=== PATIENT | female | born 1995 | race Caucasian/White ===

== ENCOUNTER 2016-06-04 03:15 | Emergency (ER) | payer BC ==
[2016-06-04] MEDS ORDERED: Ondansetron INJ* 2 MG/ML VIAL IV ONE (03:33)
[2016-06-04] MEDS ORDERED: NS 0.9% 1000 ML* 1,000 ML IV ONE (03:33)
[2016-06-04] MEDS ORDERED: Morphine INJ* 4 MG/ML 1 ML CARPUJECT IV ONE (03:33)
--- NOTE | 2016-06-04 04:03 | ED ---
Charan Pichardo Anna, scribed for Ambrosio Packer MD on 06/04/16 at 0327 . Abdominal Pain/Female - HPI Summary HPI Summary: Patient is a 20 y/o female coming to [facility] presenting with sudden onset of constant, worsening central abdominal pain that began one hour ago. The pain woke her from her sleep. She describes the severity of the pain as 8/10. It is not worsened by deep breaths. She denies nausea, dysuria, emesis, changes in BM. - History of Current Complaint Stated Complaint: SEVER ABD PAIN Hx Obtained From: Patient Onset/Duration: Sudden Onset, Lasting Hours, Still Present Timing: Constant Severity Initially: Moderate Severity Currently: Moderate Pain Intensity: 8 Pain Scale Used: 0-10 Numeric Allergies/Adverse Reactions: Allergies Allergy/AdvReac Type Severity Reaction Status Date / Time No Known Allergies Allergy Verified 06/04/16 03:23 Home Medications: Home Medications Doxepin (NF) [Silenor (NF)] 10 mg PO DAILY 06/04/16 [History Confirmed 06/04/16] Sertraline* [Zoloft*] 100 mg PO DAILY 06/04/16 [History Confirmed 06/04/16] PMH/Surg Hx/FS Hx/Imm Hx Previously Healthy: Yes Respiratory History: Reports: Hx Asthma Psychiatric History: Reports: Hx Anxiety, Hx Depression - Family History Known Family History: Positive: Other - Hx HLD in mother - Social History Lives: With Family Alcohol Use: Occasionally - 1x/week Substance Use Type: Reports: Marijuana - 1x/week Smoking Status (MU): Never Smoked Tobacco Review of Systems Positive: Abdominal Pain. Negative: Vomiting, Nausea Negative: dysuria All Other Systems Reviewed And Are Negative: Yes Physical Exam Triage Information Reviewed: Yes Vital Signs On Initial Exam: Initial Vitals Temp Pulse Resp BP Pulse Ox 98.7 F 79 12 130/75 98 06/04/16 03:22 06/04/16 03:22 06/04/16 03:22 06/04/16 03:22 06/04/16 03:22 Vital Signs Reviewed: Yes Appearance: Positive: Pain Distress - mild discomfrot, Thin Skin: Positive: Warm Head/Face: Positive: Normal Head/Face Inspection Eyes: Positive: ANDRIY ENT: Positive: Hearing grossly normal Neck: Positive: Supple Respiratory/Lung Sounds: Positive: Clear to Auscultation, Breath Sounds Present Cardiovascular: Positive: RRR Abdomen Description: Positive: No Organomegaly, Soft, Other: - mild diffuse abd tenderness Bowel Sounds: Positive: Present Musculoskeletal: Positive: Strength/ROM Intact Neurological: Positive: Sensory/Motor Intact, Alert, Oriented to Person Place, Time, Normal Gait Psychiatric: Positive: Affect/Mood Appropriate Diagnostics - Vital Signs Vital Signs Temp Pulse Resp BP Pulse Ox 06/04/16 03:58 14 06/04/16 03:22 98.7 F 79 12 130/75 98 - Laboratory Result Diagrams: 06/04/16 03:40 06/04/16 03:40 Lab Statement: Any lab studies that have been ordered have been reviewed, and results considered in the medical decision making process. - CT abd/pel CT w/contrast CT Interpretation: No Acute Changes CT Interpretation Completed By: Radiologist Re-Evaluation - Re-Evaluation First Eval Re-Evaluation Time: 06:00 Comment: Patient expresses she is still feeling abdominal pain. Wii do pelvic u/ s Second Eval Change: Improved Abdominal Pain Fem Course/Dx - Course Course Of Treatment: Goyo Lawson Patient is a 20 y/o female coming to [facility] presenting with sudden onset of constant, worsening central abdominal pain that began one hour ago. The pain woke her from her sleep. She describes the severity of the pain as 8/10. It is not worsened by deep breaths. She denies nausea, dysuria, emesis, changes in BM. Patient was given Zofran and Morphine in the ED. Labs and UA WNL. No acute findings on CT abd/pel with contrast. Upon re-evaluation, patient was still in pain and was given Ativan and Toradol. - Diagnoses Provider Diagnoses: Abdominal pain Discharge - Discharge Plan Condition: Stable Disposition: HOME Patient Education Materials: Acute Abdominal Pain (ED) [facility] [Primary Care Provider] - Additional Instructions: FOLLOW UP WITH [facility]. CONSIDER STARTING ANTACID MEDICATIONS IF HELPFUL. RETURN TO THE EMERGENCY DEPARTMENT FOR ANY WORSENING OF YOUR CONDITION; PAIN, FEVER, VOMITING, YOU FEEL ILL OR QUESTIONS OR CONCERNS. The documentation as recorded by the Charan huang Anna accurately reflects the service I personally performed and the decisions made by me, Ambrosio Packer MD.
[2016-06-04 04:39] LABS: ALT 10 U/L (7-52); AST 16 U/L (13-39); Alkaline Phosphatase 73 U/L (34-104); Anion Gap 3 mmol/L (2-11); BUN/Creatinine Ratio 17.7 (8-20); Blood Urea Nitrogen 11 mg/dL (6-24); C Reactive Protein < 1.00 mg/L (< 5.00); CO2 Carbon Dioxide 25 mmol/L (22-32); Calcium 9.2 mg/dL (8.6-10.3); Chloride 105 mmol/L (101-111); EGFR African American 157.8 (>60); EGFR Non-African American 122.7 (>60); Globulin 2.6 g/dL (2-4); Glucose 94 mg/dL (70-100); Lipase 17 U/L (11.0-82.0); Potassium 4.1 mmol/L (3.5-5.0); Sodium 133 mmol/L (133-145); Total Protein 6.6 g/dL (6.4-8.9)
[2016-06-04 04:40] LABS: Urine Bilirubin Negative (Negative); Urine Glucose Negative (Negative); Urine Nitrite Negative (Negative)
[2016-06-04 04:42] LABS: Hematocrit 39 % (35-47); Hemoglobin 12.8 g/dl (12.0-16.0); Mean Corpuscular HGB Conc 33 g/dl (31-36); Mean Corpuscular Hemoglobin 29 pg (27-31); Mean Corpuscular Volume 88 fL (80-97); Mean Platelet Volume 8 um3 (7.4-10.4); Red Blood Count 4.46 10^6/ul (4.0-5.4); Red Cell Distribution Width 15 % (10.5-15); White Blood Count 9.2 10^3/ul (3.5-10.8)
[2016-06-04 04:43] LABS: Add Diff/Slide Review? Slide Review Added
[2016-06-04] MEDS ORDERED: Iohexol 300* (CONTRAST) 10 ML SDV IV ONE (05:00)
[2016-06-04] MEDS ORDERED: Morphine INJ* 2 MG/ML 1 ML CARPUJECT IV ONE (05:09)
[2016-06-04] MEDS ORDERED: Ketorolac INJ* 30 MG/ML 1 ML VIAL IV PUSH ONE (06:02)
[2016-06-04] MEDS ORDERED: LORazepam INJ* 2 MG/ML 1 ML VIAL IV PUSH ONE (06:03)
[2016-06-04] MEDS ORDERED: LORazepam INJ* 2 MG/ML 1 ML VIAL ONE (06:04)
[2016-06-04] MEDS ORDERED: Ketorolac INJ* 30 MG/ML 1 ML VIAL ONE (06:04)
--- NOTE | 2016-06-04 08:31 | RAD ---
Indication: Lower abdominal pain. Comparison: June 04, 2016 CT. Technique: Transvaginal pelvic ultrasound. Report: Unremarkable 7.8 x 3.8 x 5.6 cm anteverted uterus with 12 mm endometrium. Negative for fluid within the endometrial cavity. Physiologic small volume of free fluid in the cul-de-sac. 4.8 x 2.8 x 2.3 cm RIGHT ovary with documented vascular flow is remarkable for a unilocular 2.0 x 2.0 x 1.7 cm cyst without complex features consistent with a follicular cyst without concern. 3.5 x 1.8 x 3.1 cm LEFT ovary with documented vascular flow is remarkable for multiple small follicles. No visualized extra ovarian adnexal region lesions. IMPRESSION: 2.0 cm follicular cyst of the RIGHT ovary without concern. Physiologic small volume of free fluid.
--- NOTE | 2016-06-04 08:58 | RAD ---
Indication: Abdominal pain. Contrast: Administered 69.0 ml of OMNIPAQUE 300 mgi/ml CT of the abdomen and pelvis was performed after oral and IV contrast administration. Coronal and sagittal reconstructed images were obtained. The lung bases demonstrate no pleural fluid, nodules or masses. Heart is of normal size without evidence of pericardial effusion. Liver is normal in size. No focal lesions or intrahepatic duct dilatation is noted. Common duct is not dilated. Gallbladder demonstrates no calcified gallstones, pericholecystic fluid or wall thickening. The pancreas demonstrates no mass or pancreatic ductal dilatation. Spleen is normal in size. No adrenal lesions are noted. The kidneys demonstrate symmetric nephrograms without focal lesions. No dilated loops of bowel are noted. No retroperitoneal adenopathy is noted. Aorta and inferior vena cava are unremarkable. There is stool throughout the colon. Moderate degree of free fluid is noted in the cul-de-sac. There is some air in a normal-appearing appendix in the right lower quadrant however the distal appendix is mildly distended with fluid. Clinical correlation is suggested. No hernias are noted. No evidence of bowel obstruction is noted. IMPRESSION: Small amount of free fluid is noted in the cul-de-sac. There is a normal caliber proximal appendix. The distal appendix appears to be filled with fluid. Clinical correlation is suggested. No hernias are noted. The uterus and ovaries are unremarkable.
--- NOTE | 2016-06-04 09:38 | ED ---
I, Bruce Sharma, scrsusana for Gurpreet Patricio MD on 06/04/16 at 0855 . Progress - Results/Orders Results/Orders: Transvaginal US: IMPRESSION: 2.0 cm follicular cyst of the RIGHT ovary without concern. Physiologic small volume of free fluid. Re-Evaluation - Re-Evaluation First Eval Re-Evaluation Time: 06:00 Comment: Patient expresses she is still feeling abdominal pain. Wii do pelvic u/ s Course/Dx - Course Course Of Treatment: Goyo Lawson Patient is a 20 y/o female coming to [facility] presenting with sudden onset of constant, worsening central abdominal pain that began one hour ago. The pain woke her from her sleep. She describes the severity of the pain as 8/10. It is not worsened by deep breaths. She denies nausea, dysuria, emesis, changes in BM. Patient was given Zofran and Morphine in the ED. Labs and UA WNL. No acute findings on CT abd/pel with contrast. Upon re-evaluation, patient was still in pain and was given Ativan and Toradol. PAIN FREE AT 0930. DISCUSSED RESULTS WITH PATIENT/FRIEND. DISCHARGE HOME STABLE. - Diagnoses Provider Diagnoses: Abdominal pain The documentation as recorded by the lisaibZachary addison Alok accurately reflects the service I personally performed and the decisions made by me, Gurpreet Patricio MD.
[2016-06-04 09:47] VITALS: BP 100/48
== END 2016-06-04 09:47 | disposition home or self-care (01) ==
LOC: ED 03:15
DX: R10.9 Unspecified abdominal pain (principal)
CPT/HCPCS: 36415; 74177; 76830; 80053; 81003; 83605; 83690; 83735; 84702; 85025; 86140; 96374; 96375; 99283; J1885; J2060; J2270; J2405; Q9967

== ENCOUNTER 2016-08-25 18:11 | Emergency (ER) | payer BC ==
[2016-08-25] MEDS ORDERED: Ketorolac INJ* 60 MG/2 ML VIAL IM ONE (19:48)
[2016-08-25] MEDS ORDERED: Cyclobenzaprine TAB* 10 MG PO ONE (19:48)
--- NOTE | 2016-08-25 19:51 | ED ---
Back Pain - HPI Summary HPI Summary: 21F presents with extreme back pain when she stood up today. She states the pain is in her lower back. She denies any injury or trauma. She states she does have history of occasionally back pain but never this severe. She denies any urinary symptoms. She denies any loss of bowel or bladder. She denies any saddle anaesthesia. She states she took Tylenol for her pain. - History of Current Complaint Chief Complaint: UCBackPain Stated Complaint: BACK PAIN Time Seen by Provider: 08/25/16 19:44 Hx Last Menstrual Period: 08/08/16 - Allergies/Home Medications Allergies/Adverse Reactions: Allergies Allergy/AdvReac Type Severity Reaction Status Date / Time No Known Allergies Allergy Verified 08/25/16 18:40 Home Medications: Home Medications Acetaminophen TAB* [Tylenol TAB*] 325 mg PO QID PRN 08/25/16 [History Confirmed 08/25/16] PMH/Surg Hx/FS Hx/Imm Hx Endocrine/Hematology History: Denies: Hx Diabetes Cardiovascular History: Denies: Hx Hypertension Respiratory History: Reports: Hx Asthma Denies: Hx Chronic Obstructive Pulmonary Disease (COPD) History: Denies: Hx Renal Disease Psychiatric History: Reports: Hx Anxiety, Hx Depression Infectious Disease History: No Infectious Disease History: Denies: Hx Clostridium Difficile, Hx Hepatitis, Hx Human Immunodeficiency Virus (HIV), Hx of Known/Suspected MRSA, Hx Shingles, Hx Tuberculosis, Traveled Outside the in Last 30 Days - Family History Known Family History: Positive: Other - Hx HLD in mother - Social History Alcohol Use: Weekly Substance Use Type: Reports: Marijuana Substance Use Comment - Amount & Last Used: last used friday Smoking Status (MU): Never Smoked Tobacco Review of Systems Negative: Fever Negative: Chest Pain Negative: Shortness Of Breath Positive: Myalgia - back pain All Other Systems Reviewed And Are Negative: Yes Physical Exam Triage Information Reviewed: Yes Vital Signs On Initial Exam: Initial Vitals Temp Pulse Resp BP Pulse Ox 98.3 F 89 16 135/73 100 08/25/16 18:36 08/25/16 18:36 08/25/16 18:36 08/25/16 18:36 08/25/16 18:36 Vital Signs Reviewed: Yes Appearance: Positive: Pain Distress Skin: Positive: Warm, Dry Head/Face: Positive: Normal Head/Face Inspection Eyes: Positive: Normal, Conjunctiva Clear Respiratory/Lung Sounds: Positive: Clear to Auscultation, Breath Sounds Present Cardiovascular: Positive: Normal, RRR Musculoskeletal: Positive: Limited @ - back due to pain, Other - neg SLR, palpable muscle spasms on exam, good pulses, tender across lower back Diagnostics - Vital Signs Vital Signs Temp Pulse Resp BP Pulse Ox 08/25/16 18:36 98.3 F 89 16 135/73 100 - Laboratory Lab Statement: Any lab studies that have been ordered have been reviewed, and results considered in the medical decision making process. Back Pain Course/Dx - Course Course Of Treatment: 21F presents with acute lower back pain. no trauma. took tyenlol. gave dose of toradol and flexeril and pain decreased. discussed no need imaging due to no trauma. neg SLR, no numbness or tingling. will have continue flexeril. patient understands and agrees with plan - Diagnoses Differential Diagnosis/HQI/PQRI: Positive: Fracture, Strain, Sprain Provider Diagnoses: Back pain Discharge - Discharge Plan Condition: Good Disposition: HOME Prescriptions: Cyclobenzaprine TAB* [Flexeril 10 MG TAB*] 10 mg PO TID PRN #9 tab PRN Reason: Pain Patient Education Materials: Back Pain (ED) [facility] [Primary Care Provider] - Additional Instructions: Take muscle relaxers three times a day for 3 days Use ibuprofen or Tylenol for pain every 6 hours ice/heat area, move as much as possible Follow up with primary within 5 days Return to ED if unable to ambulate or develop any new or worsening symptoms
[2016-08-25 20:23] VITALS: BP 102/69
== END 2016-08-25 20:23 | disposition home or self-care (01) ==
LOC: UCEAST 18:11
DX: M54.5 Low back pain (principal); J45.909 Unspecified asthma, uncomplicated; F41.9 Anxiety disorder, unspecified; F32.9 Major depressive disorder, single episode, unspecified; F12.90 Cannabis use, unspecified, uncomplicated
CPT/HCPCS: 96372; 99212; A9270-GY; G0463; J1885

== ENCOUNTER 2016-11-13 13:27 | Emergency (ER) | payer BC ==
[2016-11-13 13:50] VITALS: BP 107/68
[2016-11-13] MEDS ORDERED: Rabies Immune Globulin 2 ML* 150 UNITS/ML VIAL IM ONE (14:06)
[2016-11-13] MEDS ORDERED: Rabies VIRUS VACCINE, HDCV* 2.5 UNIT/ML 1 ML IM ONE (14:06)
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
== END 2016-11-13 14:28 | disposition home or self-care (01) ==
LOC: UCEAST 13:27
DX: Z20.3 Contact with and (suspected) exposure to rabies (principal)
CPT/HCPCS: 90375; 90471; 96372; 99211; G0463

== ENCOUNTER 2017-12-24 12:29 | Emergency (ER) | payer OTHER ==
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
[2017-12-24] MEDS ORDERED: Ketorolac INJ* 60 MG/2 ML VIAL IM ONE (13:11)
--- NOTE | 2017-12-24 14:05 | RAD ---
Indication: Back pain. 5 views of lumbar spine are reviewed. Comparison is made with previous exam dated July 24, 2017. The vertebral bodies appear normal in height. Disc spaces all well-preserved. 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 IMPRESSION: No definite fracture of the lumbar spine. Findings are similar to that seen on July 24, 2017.
[2017-12-24 15:01] VITALS: BP 122/71
== END 2017-12-24 14:59 | disposition home or self-care (01) ==
LOC: ED 12:29
DX: S39.012A Strain of muscle, fascia and tendon of lower back, initial encounter (principal); V43.52XA Car driver injured in collision with other type car in traffic accident, initial encounter; Y92.410 Unspecified street and highway as the place of occurrence of the external cause
CPT/HCPCS: 72110; 96372; 99282; J1885